=== PATIENT | female | born 1945 | race African-American/Black ===

== ENCOUNTER 2021-11-25 12:39 | Emergency (ER) | payer MEDICAID, MEDICARE ==
[~2021-11-25] VITALS: Ht 167.6 cm; Wt 54.5 kg
[2021-11-25 17:03] VITALS: BP 162/98
== END 2021-11-25 20:59 | disposition left against medical advice (07) ==
LOC: EMS 13:25
DX: F41.9 Anxiety disorder, unspecified (principal); Z53.21 Procedure and treatment not carried out due to patient leaving prior to being seen by health care provider

== ENCOUNTER 2024-03-07 19:57 | Emergency (ER) | payer MEDICARE ==
[~2024-03-07] VITALS: Ht 167.6 cm; Wt 50.9 kg
[2024-03-07 20:12] VITALS: TEMP 98.1
[2024-03-07 22:00] VITALS: BP 115/66; PULSE 90; RESP 14
== END 2024-03-07 22:46 | disposition home or self-care (01) ==
LOC: EMS 19:57
DX: T83.028A Displacement of other urinary catheter, initial encounter (principal); I10 Essential (primary) hypertension; F41.9 Anxiety disorder, unspecified; F32.A Depression, unspecified; F20.9 Schizophrenia, unspecified; N15.9 Renal tubulo-interstitial disease, unspecified; Y92.89 Other specified places as the place of occurrence of the external cause; Y84.6 Urinary catheterization as the cause of abnormal reaction of the patient, or of later complication, without mention of misadventure at the time of the procedure
CPT/HCPCS: 99281; Z7502